=== PATIENT | female | born 1975 | race Caucasian/White ===

== ENCOUNTER 2018-08-02 09:50 | Emergency (ER) | payer OTHER ==
[~2018-08-02] VITALS: Ht 170.2 cm; Wt 89.2 kg
[~2018-08-02 09:50] MED LIST: ACETAMINOPHEN-1 EAC1; ADDERALL 30 MG30 MG; CARISOPRODOL 3350 MG; CLONAZEPAM 1 MG1 M1; CYMBALTA60 MG; MINOCIN100 MG; MULTI FOR HER1 EACH; NORCO 5-325 TA1 EACH PO; PROZAC 20 MG20 MG; VALTREX1000 MG
[2018-08-02] MEDS ORDERED: ACETAMINOPHEN-1 EAC1 PO (10:00)
[2018-08-02 11:07] LABS: ABSOLUTE EOSINOPHILS 0.1 thou/uL (0.0-0.7); ABSOLUTE LYMPHOCYTES 1.6 thou/uL (0.8-5.3); ABSOLUTE MONOCYTES 0.3 thou/uL (0.0-1.2); ABSOLUTE NEUTROPHILS 2.2 thou/uL (1.6-8.1); BASOPHILS 0.9 %; EOSINOPHILS 2.6 %; HEMATOCRIT 25.7 % (37.0-47.0); HEMOGLOBIN 7.9 gm/dL (12.0-15.0); LYMPHOCYTES 38.3 %; MCH 24.4 pg (26.0-34.0); MCHC 30.7 g/dL (28.0-37.0); MCV 79.4 fL (80.0-100.0); MONOCYTES 7.6 %; MPV 8.3 fl. (7.2-11.1); NUCLEATED RBCS 0 /100WBC; PLATELET COUNT* 180 thou/uL (150-400); POLYS 50.6 %; RBC 3.23 mil/uL (4.20-5.00); RDW-CV 18.2 % (10.5-14.5); WBC 4.3 thou/uL (4.0-11.0)
[2018-08-02 11:24] LABS: CALCIUM 8.6 mg/dL (8.5-10.1); CREATININE 0.7 mg/dL (0.6-1.3); POTASSIUM 3.9 mmol/L (3.5-5.1)
[2018-08-02 11:27] LABS: ALBUMIN 3.3 g/dL (3.4-5.0); TOTAL BILIRUBIN 0.3 mg/dL (<0.1-1.0); TOTAL PROTEIN 6.3 g/dL (6.4-8.2)
[2018-08-02 11:45] LABS: URINE BILIRUBIN NEGATIVE (Negative); URINE BLOOD NEGATIVE (Negative); URINE CLARITY CLEAR; URINE COLOR YELLOW; URINE GLUCOSE-RANDOM NEGATIVE (Negative); URINE KETONES NEGATIVE (Negative); URINE LEUKOCYTES-REFLEX NEGATIVE (Negative); URINE NITRITE-REFLEX NEGATIVE (Negative); URINE PROTEIN NEGATIVE (Negative); URINE UROBILINOGEN 0.2 E.U./dl (0.2-1.0)
[2018-08-02 12:13] VITALS: BP 131/81
--- NOTE | 2018-08-03 14:52 | EKG ---
[place] [address] ELECTROCARDIOGRAM REPORT Name: JENNIFER GRESHAM Room: [facility]#: [id number] Admission: 08/02/18 Attend Phys: Discharge: 08/02/18 Date of : 77 Report #: [id number] THIS REPORT FOR: //name// [facility] ED Test Date: 2018-08-02 Test Time: 09:55:36 Pat Name: JENNIFER GRESHAM Department: Room: Gender: F [employer] [place] Operator: NOAM : 1975 Requested By: Jackson Saravia Order Number: [id number] MD: Leopoldo Haines Measurements Intervals [place] Rate: 61 P: 72 IN: 131 QRS: -32 QRSD: 107 T: 61 QT: 416 QTc: 419 Interpretive Statements Sinus rhythm Left axis deviation No previous ECG available for comparison Electronically Signed On 08-03-2018 14:52:40 CDT by Leopoldo Haines [email or web address] <ELECTRONICALLY SIGNED> By: Leopoldo Haines MD, [facility] 08/03/18 [id number] Leopoldo Haines MD, FACC /EPI
== END 2018-08-02 12:14 | disposition home or self-care (01) ==
LOC: M.ERS 09:50
PROVIDERS: Nurse Practitioner Family
DX: D64.9 Anemia, unspecified (principal); M79.18 Myalgia, other site; F17.210 Nicotine dependence, cigarettes, uncomplicated; Z88.2 Allergy status to sulfonamides; Z88.8 Allergy status to other drugs, medicaments and biological substances; Z98.890 Other specified postprocedural states; V89.2XXA Person injured in unspecified motor-vehicle accident, traffic, initial encounter; Y92.89 Other specified places as the place of occurrence of the external cause; Y93.89 Activity, other specified; Y99.8 Other external cause status